=== PATIENT | male | born 1955 | race Caucasian/White ===

== ENCOUNTER → 2020-07-25 07:17 | Outpatient (CLI) | payer BC, SELFPAY ==
[2020-07-25 09:48] LABS: Free T3, Triiodothyronine Free 5.63 pg/mL (2.77-5.27); Free T4, Direct Thyroxine 0.84 ng/dL (0.78-2.19)
== END ==
PROVIDERS: Family Provider Internal Medicine; PCP Internal Medicine; Referring Provider Naturopath; Visit Provider Naturopath
DX: E03.9 Hypothyroidism, unspecified (principal)
CPT/HCPCS: 36415; 84439; 84443; 84481